=== PATIENT | male | born 1965 | race Caucasian/White ===

== ENCOUNTER 2019-12-23 16:59 | Emergency (ER) | payer OTHER ==
[2019-12-23 17:26] VITALS: BP 142/103; PULSE 80
--- NOTE | 2019-12-23 17:44 | EDM.PDOC ---
ED HPI GENERAL MEDICAL PROBLEM - General Chief Complaint: Upper Extremity Injury/Pain Stated Complaint: LT ELBOW INJ Time Seen by Provider: 12/23/19 17:23 Source of Information: Reports: Patient, RN Notes Reviewed History Limitations: Reports: No Limitations - History of Present Illness INITIAL COMMENTS - FREE TEXT/NARRATIVE: Patient is a 54-year-old male who presents to the ED for a left elbow injury. Patient states that roughly 2 PM this afternoon, he struck a concrete pillar or post with his left elbow. He appreciated moderate amount of left elbow swelling and increased pressure after this injury. He states that he still able to move his arm okay, is not having any pain in his shoulder or his wrist, and still can pronate and supinate his arm without much difficulty at all. He further denies any numbness or tingling into the fingers on the affected hand. He denies any loss of strength or otherwise. He states that pain is manageable and has not taken any sort of medications for the pain at this time. Patient denies any other sick-like symptoms. Left Elbow Pain Score (Numeric/FACES): 2 - Related Data Allergies Allergy/AdvReac Type Severity Reaction Status Date / Time No Known Allergies Allergy Verified 12/23/19 17:26 Home Meds: Home Meds .Glucosamine 1 tab PO DAILY 01/07/14 [History] Multivitamin with Minerals [Multiple Vitamin] 1 tab PO DAILY 01/07/14 [History] Acetaminophen [Tylenol] 650 mg PO ASDIRECTED PRN 05/02/15 [History] Losartan [Cozaar] 50 mg PO DAILY 12/23/19 [History] Past Medical History Genitourinary History: Reports: Other (See Below) Other Genitourinary History: left kidney contusions Musculoskeletal History: Reports: Other (See Below) Other Musculoskeletal History: bursitis R knee, SLAC of wrist, TFCC, R wrist pain, L shoulder repair - Past Surgical History Musculoskeletal Surgical History: Reports: Shoulder Surgery (left shoulder repair) Review of Systems - Review of Systems Review Of Systems: Comprehensive ROS is negative, except as noted in HPI. ED EXAM, GENERAL - Physical Exam Exam: See Below Exam Limited By: No Limitations General Appearance: Alert, WD/WN, No Apparent Distress Eye Exam: Bilateral Eye: EOMI, Normal Inspection, PERRL Respiratory/Chest: No Respiratory Distress, Lungs Clear, Normal Breath Sounds, No Accessory Muscle Use, Chest Non-Tender Cardiovascular: Normal Peripheral Pulses, Regular Rate, Rhythm, No Murmur Peripheral Pulses: 3+: Radial (L), Radial (R) Extremities: Normal Range of Motion, Non-Tender, Normal Capillary Refill, Joint Swelling (Left elbow). No: Increased Warmth Neurological: Alert, Oriented, Normal Cognition, No Motor/Sensory Deficits Psychiatric: Normal Affect, Normal Mood Skin Exam: Warm, Dry, Intact, Normal Color, No Rash Course - Vital Signs Last Recorded V/S: Last Vital Signs Temp 99 F 12/23/19 17:23 Pulse 80 12/23/19 17:23 Resp BP 142/103 H 12/23/19 17:23 Pulse Ox 97 12/23/19 17:23 - Orders/Labs/Meds Orders: Active Orders 24 hr Category Date Time Status Elbow Min 3V Lt [CR] Stat Exams 12/23/19 17:27 Taken - Re-Assessments/Exams Free Text/Narrative Re-Assessment/Exam: 12/23/19 17:40 Patient presents to the ED for evaluation of his left elbow injury. Highly likely this could just be a traumatic effusion of the left elbow. Nonetheless have ordered x-rays to rule out bony injury. 12/23/19 18:27 X-rays do appear to be within normal limits, there are no bony abnormalities or fractures appreciated by myself or Dr. Calloway. There is quite a bit of soft tissue swelling noted on the left elbow surface. Which would be conclusive of the traumatic effusion. We will have the patient compress this area use ice packs and ibuprofen as needed for pain. We will have him follow-up in a week or 2 to make sure that the swelling is getting better. Departure - Departure Time of Disposition: 18:29 Disposition: Home, Self-Care 01 Condition: Good Clinical Impression: Traumatic joint effusion, Injury of left elbow region - Discharge Information *PRESCRIPTION DRUG MONITORING PROGRAM REVIEWED*: No *COPY OF PRESCRIPTION DRUG MONITORING REPORT IN PATIENT MAYRA: No Referrals: Tyler Coelho MD [Primary Care Provider] - Forms: ED Department Discharge Additional Instructions: You have been evaluated in the ED for your left elbow injury. Your x-ray demonstrated no acute fracture or other bony abnormality. It is likely that this is more of a traumatic effusion, which is just bleeding and swelling into this area. This will likely get better with time. You will need to keep the area Thaddeus wrap to help provide compression to try to relieve the area of swelling. Please use ice as tolerated to the affected area. Please try to elevate the affected area to relieve swelling. You may take Tylenol 500 mg or ibuprofen 600mg q6 hrs for pain relief. Please do so until you have a tolerable level of pain with activity. Do not exceed 4000mg Tylenol or 3200mg ibuprofen in a 24 hour time period. Please return to ED if your symptoms should change or worsen. Sepsis Event Note - Evaluation Sepsis Screening Result: No Definite Risk - Focused Exam Vital Signs: Vital Signs Temp Pulse BP Pulse Ox 12/23/19 17:23 99 F 80 142/103 H 97 Date Exam was Performed: 12/23/19 Time Exam was Performed: 18:27 - My Orders Last 24 Hours: My Active Orders 12/23/19 17:27 Elbow Min 3V Lt [CR] Stat - Assessment/Plan Last 24 Hours: My Active Orders 12/23/19 17:27 Elbow Min 3V Lt [CR] Stat
--- NOTE | 2019-12-24 07:18 | CR ---
Left elbow: 4 views left elbow were obtained. Comparison: No prior elbow study is available. Joint spaces are preserved. No discrete joint effusion is seen. No acute fracture, dislocation or other bony abnormality is seen. Soft tissue swelling is seen within the region of the olecranon bursa. Impression: 1. Soft tissue swelling in the region of the olecranon bursa. 2. No bony abnormality is identified on left elbow exam. Diagnostic code #2 This report was dictated in MDT
== END 2019-12-23 19:07 | disposition home or self-care (01) ==
LOC: JD.ED 16:59
DX: S59.902A Unspecified injury of left elbow, initial encounter (principal); Z79.899 Other long term (current) drug therapy; W22.01XA Walked into wall, initial encounter
CPT/HCPCS: 73080-26-LT; 73080-LT; 99282; 99283-25

== ENCOUNTER 2022-04-23 13:55 | Emergency (ER) | payer OTHER ==
[2022-04-23] MEDS ORDERED: Sodium Chloride 0.9% 1,000 ML IV ONE (14:45)
[2022-04-23] MEDS ORDERED: Morphine 2 MG/ML SYRINGE IV ONE (16:00)
[2022-05-16 12:27] VITALS: BP 147/97; PULSE 55
[2022-05-23 09:01] LABS: ESTIMATED GFR 87 mL/min (>60)
== END 2022-04-23 17:35 | disposition home or self-care (01) ==
LOC: JD.ED 13:55
DX: S06.0XAA Concussion with loss of consciousness status unknown, initial encounter (principal); S00.03XA Contusion of scalp, initial encounter; W13.2XXA Fall from, out of or through roof, initial encounter; Y92.69 Other specified industrial and construction area as the place of occurrence of the external cause; Y99.0 Civilian activity done for income or pay
CPT/HCPCS: 36415; 70450; 70450-26; 71250; 71250-26; 72125; 72125-26; 74176; 74176-26; 80048; 80306; 80307; 81001; 82550; 84484; 85025; 85610; 85730; 86850; 86900; 86901; 93005; 96374; 99284-25; J2270; J7030